=== PATIENT | male | born 1980 | race Hispanic/Latino ===

== ENCOUNTER 2021-02-23 22:10 | Emergency (ER) | payer SELFPAY ==
[2021-02-23 22:13] VITALS: BP 134/86; PULSE 85; RESP 19; TEMP 36.6; O2SAT 99
[2021-02-23] MEDS: LIDOCAINE HCL 2% VISC SOLN 15 ML UDC PO (23:46)
--- NOTE | 2021-02-23 23:49 | ED.GENADULT ---
HPI - General Adult General Chief complaint: Dental/Oral Stated complaint: Headache/mouth pain Time Seen by Provider: 02/23/21 22:50 History of Present Illness HPI narrative: Patient is a 40-year-old male who presents ER with mouth pain and oral lesions worsening over the last couple weeks. Patient was seen at an urgent care on 02/21/2021 and prescribed fluconazole p.o. as well as valacyclovir. Patient has sores to the tongue and cheek. It causes him pain when he tries to eat/drink/swallow. He is having some weight loss to this. Symptoms began after taking oral antibiotics for a buttock abscess. After he developed a body rash the antibiotics were discontinued and this was over 2 weeks ago. Patient is having no fevers or chills or sweats. Related Data Allergies Allergy/AdvReac Type Severity Reaction Status Date / Time No Known Allergies Allergy Verified 02/23/21 22:12 Review of Systems ENT: Comments: Mouth pain and lesions with a swollen tongue. Respiratory: Respiratory: Denies cough and Denies dyspnea PMFSH Past Medical History Medical History (Updated 02/24/21 @ 00:01 by Rashid Hutchinson MD) Healthy adult male Surgical History Surgical History (Updated 02/23/21 @ 23:51 by Rashid Hutchinson MD) No history of previous surgery Exam Narrative: Exam Narrative: GENERAL: Well-appearing, well-nourished, and in no acute distress. HEAD: Normocephalic, atraumatic. ENT: Mucous membranes moist. Ulcerations inferior to the tongue and along the buccal mucosa near the teeth. There is additional ulcerations over the hard palate. Tongue is slightly erythematous with geographic tongue noted. Tolerating oral secretions without issue. CHEST: Clear to auscultation. No respiratory distress. HEART: Regular rate and rhythm. Normal peripheral pulses. EXTREMITIES: Normal range of motion. No edema. SKIN: Warm, dry, no rash. Healing right buttock ulcer is about the size of a nickel. No cellulitis. NEURO: Alert and oriented x3. Course Course Emergency Course: Patient was able to drink Viscous Lidocaine reports improvement of his discomfort. Educated that he should continue take the antifungal and antiviral. Will also prescribe viscous lidocaine and Peridex to help with his symptoms. Discussed he should establish care with PCP. Vital Signs Vital signs: Vital Signs Temperature 97.9 F 02/23/21 22:13 Pulse Rate 85 02/23/21 22:13 Respiratory Rate 19 02/23/21 22:13 Blood Pressure 134/86 02/23/21 22:13 Pulse Oximetry 99 02/23/21 22:13 Temperature 97.9 F 02/23/21 22:13 Pulse Rate 85 02/23/21 22:13 Respiratory Rate 19 02/23/21 22:13 Blood Pressure 134/86 02/23/21 22:13 Pulse Oximetry 99 02/23/21 22:13 Medical Decision Making Vital Signs Vital Signs: Vital Signs Temperature 97.9 F 02/23/21 22:13 Pulse Rate 85 02/23/21 22:13 Respiratory Rate 19 02/23/21 22:13 Blood Pressure 134/86 02/23/21 22:13 Pulse Oximetry 99 02/23/21 22:13 Temperature 97.9 F 02/23/21 22:13 Pulse Rate 85 02/23/21 22:13 Respiratory Rate 19 02/23/21 22:13 Blood Pressure 134/86 02/23/21 22:13 Pulse Oximetry 99 02/23/21 22:13 Discharge Plan Discharge Clinical Impression: Stomatitis and mucositis Patient Disposition: Home, Self-Care Condition: Stable Instructions: Gingivostomatitis (ED) Additional Instructions: Return to the ER if you cannot breathe, you cannot swallow, you have chest pain or shortness of breath, you have additional concerns. Patient Language: Ukrainian Prescriptions: New chlorhexidine gluconate [Peridex] 0.12 % mouthwash 15 ml mucous membrane BID Qty: 473 RF: 0 lidocaine HCl [Lidocaine Viscous] 2 % solution 1 applic mucous membrane TID PRN (Reason: pain) Qty: 100 RF: 1 Follow-up/Referrals: PHYSICIAN,HHA [Primary Care Provider] - Feng Livingston MD [Physician] - 1 Week Stand Alone Forms: Work/School Release IP
[2021-02-24 00:09] VITALS: BP 131/79; PULSE 75; RESP 16; TEMP 36.3; O2SAT 98
== END 2021-02-24 00:10 | disposition home or self-care (01) ==
PROVIDERS: Emergency Provider Emergency Medicine
DX: K12.1 Other forms of stomatitis (principal); K12.30 Oral mucositis (ulcerative), unspecified
CPT/HCPCS: 99283